=== PATIENT | female | born 1955 | race Caucasian/White ===

== ENCOUNTER → 2023-03-22 08:30 | Outpatient (REF) | payer MEDICARE, SELFPAY | LOC: WDC 08:30 | PROVIDERS: ATTENDING PHYSICIAN Student in an Organized Health Care Education/Training Program; FAMILY PHYSICIAN Internal Medicine | DX: Z12.31 Encounter for screening mammogram for malignant neoplasm of breast (principal) | CPT/HCPCS: 77063; 77067 ==

== ENCOUNTER → 2023-07-05 08:05 | Outpatient (REF) | payer MEDICARE, SELFPAY ==
[2023-07-05 10:03] LABS: Urine Albumin Trace (Neg - Trace); Urine Bilirubin Negative (Negative); Urine Character Clear (Clear); Urine Color Yellow; Urine Glucose Negative (Negative); Urine Ketone Negative (Negative); Urine Leukocyte Trace (Negative); Urine Nitrite Negative (Negative); Urine Occult Blood 1+ (Negative); Urine Urobilinogen Negative (Neg - 1+)
[2023-07-05 10:18] LABS: ALT (SGPT) 24 U/L (0-35); AST (SGOT) 29 U/L (14-36); Albumin 4.5 g/dl (3.5-5.0); Alkaline Phosphatase 87 U/L (38-126); Blood Urea Nitrogen 19 mg/dl (7-17); Calcium 9.5 mg/dl (8.4-10.2); Carbon Dioxide 30 mmol/L (22-30); Chloride 104 mmol/L (98-107); Glucose 95 mg/dl (70-99); HDL Cholesterol 66 mg/dl; LDL Cholesterol, Calculated 84 mg/dl; Sodium 143 mmol/L (135-145); Total Bilirubin 0.4 mg/dl (0.2-1.3); Total Cholesterol 185 mg/dl (50-199); Total Protein 7.5 g/dl (6.3-8.2); Triglyceride 179 mg/dl (10-149); Very Low Density Lipoprotein 35 mg/dl (0-30); eGFR > 60.00
[2023-07-05 10:21] LABS: % Basophils 1.2 % (0-2); % Eosinophils 4.6 % (0-6); % Immature Granulocytes 0.3 % (0-0.5); % Monocytes 7.2 % (1.7-9.3); % Neutrophils 63.7 % (42.2-75.2); Absolute Basophils 0.1 10^3/uL (0-0.2); Absolute Eosinophils 0.3 10^3/uL (0-0.7); Absolute Lymphocytes 1.5 10^3/uL (1.2-3.4); Absolute Monocytes 0.5 10^3/uL (0.1-0.6); Absolute Neutrophils 4.2 10^3/uL (1.4-6.5); Hemoglobin 13.3 g/dL (12.0-16.0); Mean Corp Hgb Conc. 31.7 g/dL (33.0-37.0); Mean Corpuscular Volume 85.4 fL (81.0-99.0); Mean Platelet Volume 10.2 fL (7.4-10.4); Nucleated Red Blood Cells % 0 %; Platelet Count 214 10^3/uL (130-400); Red Blood Cell Count 4.92 10^6/uL (4.20-5.40); Red Cell Dist. Width 13.8 % (11.5-14.5); White Blood Cell Count 6.6 10^3/uL (4.8-10.8)
[2023-07-05 10:30] LABS: Free T4 1.11 ng/dl (0.78-2.19)
[2023-07-05 10:44] LABS: TSH 0.68 uIU/ml (0.47-4.68)
[2023-07-05 11:11] LABS: Urine Mucus Many; Urine White Cell 0-2 /HPF (0-5)
== END ==
LOC: HWLAB 08:05
PROVIDERS: ATTENDING PHYSICIAN Internal Medicine
DX: E03.9 Hypothyroidism, unspecified (principal); I10 Essential (primary) hypertension; E78.2 Mixed hyperlipidemia; K76.0 Fatty (change of) liver, not elsewhere classified; Z79.899 Other long term (current) drug therapy
CPT/HCPCS: 36415; 80053; 80061; 81003; 81015; 84439; 84443; 85025

== ENCOUNTER → 2023-08-10 14:08 | Outpatient (REF) | payer MEDICARE, SELFPAY | LOC: HWRAD 14:08 | PROVIDERS: ATTENDING PHYSICIAN Internal Medicine | DX: R51.9 Headache, unspecified (principal) | CPT/HCPCS: 70450 ==

== ENCOUNTER → 2023-11-20 11:42 | Outpatient (REF) | payer MEDICARE, SELFPAY | LOC: DHSLP 11:42 | PROVIDERS: ATTENDING PHYSICIAN Internal Medicine | DX: G47.33 Obstructive sleep apnea (adult) (pediatric) (principal); R09.02 Hypoxemia | CPT/HCPCS: 95800 ==

== ENCOUNTER → 2023-12-07 09:55 | Outpatient (REF) | payer MEDICARE, SELFPAY ==
[2023-12-07 13:26] LABS: FSH 8.2 mIU/ml; Luteinizing Hormone 2.65 mIU/ml
[2023-12-07 13:40] LABS: TSH 0.13 uIU/ml (0.47-4.68)
[2023-12-07 14:22] LABS: Cortisol, Random 7.8 ug/dl
[2023-12-10 02:24] LABS: IGF-1 Z Score Calculation -1.2; Insulin-like Growth Factor I 58 ng/mL (30-235)
== END ==
LOC: HWLAB 09:55
PROVIDERS: ATTENDING PHYSICIAN Internal Medicine Endocrinology, Diabetes & Metabolism; FAMILY PHYSICIAN Internal Medicine
DX: E03.9 Hypothyroidism, unspecified (principal); Z92.3 Personal history of irradiation
CPT/HCPCS: 36415; 82533; 82670; 83001; 83002; 84146; 84305; 84439; 84443; 86376; 86800

== ENCOUNTER 2023-12-20 07:55 | Outpatient (RCR) | payer MEDICARE, SELFPAY ==
[2023-12-20 08:00] VITALS: BP 154/83
[2023-12-20] MEDS: CORTROSYN 1 MG IV (08:28)
[2023-12-20 10:29] LABS: ACTH Stim Cortisol 30 Min 17.7 ug/dl
[2023-12-20 10:39] LABS: ACTH Stim Cortisol 0 Min 8.6 ug/dl
[2023-12-20 11:46] LABS: ACTH Stim Cortisol 60 Min 19.5 ug/dl
== END 2023-12-20 23:59 | disposition home or self-care (01) ==
LOC: OID 07:55
PROVIDERS: ATTENDING PHYSICIAN Internal Medicine Endocrinology, Diabetes & Metabolism; FAMILY PHYSICIAN Internal Medicine
DX: E27.1 Primary adrenocortical insufficiency (principal)
CPT/HCPCS: 36415; 82533; 96374

== ENCOUNTER → 2024-02-05 13:00 | Outpatient (REF) | payer MEDICARE, SELFPAY | LOC: PAVMRI 13:00 | PROVIDERS: ATTENDING PHYSICIAN Internal Medicine Endocrinology, Diabetes & Metabolism; FAMILY PHYSICIAN Internal Medicine | DX: D32.9 Benign neoplasm of meninges, unspecified (principal); E22.1 Hyperprolactinemia | CPT/HCPCS: 70553 ==

== ENCOUNTER → 2024-02-05 16:32 | Outpatient (REF) | payer MEDICARE, SELFPAY | LOC: RAD 16:32 | PROVIDERS: ATTENDING PHYSICIAN Nurse Practitioner Family | DX: S99.922A Unspecified injury of left foot, initial encounter (principal) | CPT/HCPCS: 73630 ==

== ENCOUNTER → 2024-04-16 14:40 | Outpatient (REF) | payer MEDICARE, SELFPAY | LOC: WDC 14:40 | PROVIDERS: ATTENDING PHYSICIAN Student in an Organized Health Care Education/Training Program; FAMILY PHYSICIAN Internal Medicine | DX: Z12.31 Encounter for screening mammogram for malignant neoplasm of breast (principal) | CPT/HCPCS: 77063; 77067 ==

== ENCOUNTER → 2024-06-16 13:03 | Outpatient (REF) | payer MEDICARE, SELFPAY | LOC: WDC 13:03 | PROVIDERS: ATTENDING PHYSICIAN Student in an Organized Health Care Education/Training Program; FAMILY PHYSICIAN Internal Medicine | DX: R92.30 Dense breasts, unspecified (principal); R92.2 Inconclusive mammogram | CPT/HCPCS: 76641 ==

== ENCOUNTER → 2024-11-11 08:58 | Outpatient (REF) | payer MEDICARE, SELFPAY ==
[2024-11-11 12:29] LABS: Hematocrit 44.0 % (37.0-47.0); Hemoglobin 13.8 g/dL (12.0-16.0); Mean Corp Hgb Conc. 31.4 g/dL (33.0-37.0); Mean Corpuscular Volume 87.1 fL (81.0-99.0); Nucleated Red Blood Cells % 0 %; Platelet Count 225 10^3/uL (130-400); Red Cell Dist. Width 14.1 % (11.5-14.5)
[2024-11-11 12:50] LABS: ALT (SGPT) 20 U/L (0-35); AST (SGOT) 22 U/L (14-36); Albumin 4.7 g/dl (3.5-5.0); Alkaline Phosphatase 71 U/L (38-126); Blood Urea Nitrogen 20 mg/dl (7-17); Calcium 9.3 mg/dl (8.4-10.2); Carbon Dioxide 28 mmol/L (22-30); Chloride 105 mmol/L (98-107); Glucose 92 mg/dl (70-99); HDL Cholesterol 64 mg/dl; LDL Cholesterol, Calculated 86 mg/dl; Potassium 4.3 mmol/L (3.5-5.1); Sodium 140 mmol/L (135-145); Total Protein 7.6 g/dl (6.3-8.2); Very Low Density Lipoprotein 24 mg/dl (0-30); eGFR 54.73
[2024-11-11 13:19] LABS: TSH 0.25 uIU/ml (0.47-4.68)
[2024-11-11 13:22] LABS: Cortisol, Random 8.7 ug/dl
[2024-11-11 13:26] LABS: Glycohemoglobin (HgbA1c) 5.6 % (4.0-5.6)
[2024-11-14 05:27] LABS: IGF-1 Z Score Calculation -1.1
== END ==
LOC: HWLAB 08:58
PROVIDERS: ATTENDING PHYSICIAN Internal Medicine Endocrinology, Diabetes & Metabolism; FAMILY PHYSICIAN Internal Medicine
DX: I10 Essential (primary) hypertension (principal); E03.9 Hypothyroidism, unspecified; E66.9 Obesity, unspecified; E78.00 Pure hypercholesterolemia, unspecified; G47.33 Obstructive sleep apnea (adult) (pediatric); Z92.3 Personal history of irradiation; R93.1 Abnormal findings on diagnostic imaging of heart and coronary circulation
CPT/HCPCS: 36415; 80053; 80061; 82533; 82670; 83036; 84146; 84305; 84439; 84443; 85025

== ENCOUNTER → 2024-11-17 14:39 | Outpatient (REF) | payer MEDICARE, SELFPAY | LOC: REG 14:39 | PROVIDERS: ATTENDING PHYSICIAN Internal Medicine Endocrinology, Diabetes & Metabolism; FAMILY PHYSICIAN Internal Medicine | DX: E03.9 Hypothyroidism, unspecified (principal); Z92.3 Personal history of irradiation; R68.82 Decreased libido | CPT/HCPCS: 36415; 82627; 84403 ==

== ENCOUNTER → 2024-11-27 19:02 | Outpatient (REF) | payer MEDICARE, SELFPAY | LOC: MRI 3T 19:02 | PROVIDERS: ATTENDING PHYSICIAN Physician Assistant Surgical; FAMILY PHYSICIAN Internal Medicine | DX: M25.512 Pain in left shoulder (principal) | CPT/HCPCS: 73221 ==